=== PATIENT | female | born 1985 | race African-American/Black ===

== ENCOUNTER 2019-12-24 08:57 | Emergency (ER) | payer SELFPAY ==
[~2019-12-24] VITALS: Ht 162.6 cm; Wt 75.0 kg
[2019-12-24 09:02] VITALS: BP 137/92
== END 2019-12-24 10:19 | disposition left against medical advice (07) ==
LOC: ER 09:13
DX: Z53.21 Procedure and treatment not carried out due to patient leaving prior to being seen by health care provider (principal)

== ENCOUNTER 2021-03-06 06:13 | Emergency (ER) | payer MEDICAID ==
[~2021-03-06] VITALS: Ht 162.6 cm; Wt 82.0 kg
[2021-03-06] MEDS ORDERED: MORPHINE SULFATE 4 MG/ML CPJ (NOT FOR IM USE) IV STA (06:47)
[2021-03-06 07:15] LABS: BASOPHILS % 0.6 % (0.0-2.0); EOSINOPHILS % 1.9 % (0.0-5.0); HEMATOCRIT. 38.9 % (36.0-48.0); HEMOGLOBIN. 12.7 g/dL (12.0-16.0); LYMPHOCYTES % 23.3 % (20.0-50.0); MEAN CORPUSCULAR HEMOGLOBIN 27.1 pg (28.0-32.0); MEAN CORPUSCULAR VOLUME 82.6 fL (81.0-99.0); MEAN PLATELET VOLUME 8.6 fl (7.4-10.4); MONOCYTES % 6.5 % (2.0-8.0); NEUTROPHILS % 67.7 % (40.0-76.0); PLATELET 284 x1000/uL (130-400); RED BLOOD CELL COUNT 4.71 mill/uL (4.2-5.4)
[2021-03-06 07:21] LABS: CHLORIDE 106 mEq/L (98-107)
[2021-03-06 09:30] VITALS: BP 135/80
== END 2021-03-06 10:24 | disposition left against medical advice (07) ==
LOC: ER 06:13
DX: R07.89 Other chest pain (principal); J45.909 Unspecified asthma, uncomplicated; Z82.49 Family history of ischemic heart disease and other diseases of the circulatory system
CPT/HCPCS: 36415; 71045; 80053; 81025; 83880; 84484; 85025; 85379; 93005; 96374; 99285; J2270

== ENCOUNTER 2022-01-22 02:28 | Emergency (ER) | payer MEDICAID ==
[~2022-01-22] VITALS: Ht 162.6 cm; Wt 75.0 kg
[2022-01-22] MEDS ORDERED: IBUPROFEN 600MG TABLET PO ONE (03:15)
[2022-01-22 04:15] VITALS: BP 132/85
== END 2022-01-22 04:15 | disposition home or self-care (01) ==
LOC: ER 02:50
DX: M79.18 Myalgia, other site (principal); J45.909 Unspecified asthma, uncomplicated
CPT/HCPCS: 99282

== ENCOUNTER 2022-02-19 04:49 | Emergency (ER) | payer MEDICAID ==
[~2022-02-19] VITALS: Ht 162.6 cm; Wt 70.0 kg
[2022-02-19 05:43] LABS: BASOPHILS % 0.7 % (0.0-2.0); EOSINOPHILS % 3.8 % (0.0-5.0); HEMATOCRIT. 35.5 % (36.0-48.0); HEMOGLOBIN. 11.3 g/dL (12.0-16.0); LYMPHOCYTES % 40.5 % (20.0-50.0); MEAN CORPUSCULAR HEMOGLOBIN 26.1 pg (28.0-32.0); MEAN CORPUSCULAR VOLUME 82.2 fL (81.0-99.0); MEAN PLATELET VOLUME 7.6 fl (7.4-10.4); MONOCYTES % 8.6 % (2.0-8.0); NEUTROPHILS % 46.4 % (40.0-76.0); PLATELET 377 x1000/uL (130-400); RED BLOOD CELL COUNT 4.32 mill/uL (4.2-5.4); RED CELL DISTRIBUTION WIDTH 16.2 % (11.6-14.6)
[2022-02-19 05:51] LABS: CHLORIDE 105 mEq/L (98-107)
[2022-02-19 06:10] LABS: *BARBITURATES SCREEN URINE NEGATIVE (NEGATIVE); *BENZODIAZEPINES SCREEN URINE NEGATIVE (NEGATIVE); METHADONE URINE SCREEN NEGATIVE (NEGATIVE); OPIATES URINE SCREEN NEGATIVE (NEGATIVE)
[2022-02-19 06:20] LABS: *AMPHETAMINES SCREEN URINE PRESUMTIVE POSITIVE (NEGATIVE); *COCAINE SCREEN URINE PRESUMTIVE POSITIVE (NEGATIVE)
[2022-02-19 06:21] LABS: CANNABINOID URINE SCREEN PRESUMTIVE POSITIVE (NEGATIVE); PHENCYCLIDINE URINE SCREEN PRESUMTIVE POSITIVE (NEGATIVE)
[2022-02-19 07:25] VITALS: BP 138/85
== END 2022-02-19 07:25 | disposition home or self-care (01) ==
LOC: ER 04:49
DX: F15.10 Other stimulant abuse, uncomplicated (principal); F16.10 Hallucinogen abuse, uncomplicated; F12.10 Cannabis abuse, uncomplicated; F14.10 Cocaine abuse, uncomplicated; R55 Syncope and collapse; J45.909 Unspecified asthma, uncomplicated
CPT/HCPCS: 36415; 71045; 80053; 80305; 83880; 84484; 85025; 85379; 93005; 99285

== ENCOUNTER 2022-07-27 13:32 | Emergency (ER) | payer MEDICAID | END 2022-07-27 14:08 | disposition left against medical advice (07) | LOC: ER 13:32 | DX: Z53.21 Procedure and treatment not carried out due to patient leaving prior to being seen by health care provider (principal) ==

== ENCOUNTER 2022-07-29 00:14 | Emergency (ER) | payer MEDICAID ==
[~2022-07-29] VITALS: Ht 165.1 cm; Wt 77.0 kg
[2022-07-29 00:24] VITALS: BP 150/90
== END 2022-07-29 01:26 | disposition left against medical advice (07) ==
LOC: ER 00:14
DX: Z53.21 Procedure and treatment not carried out due to patient leaving prior to being seen by health care provider (principal)

== ENCOUNTER 2022-10-06 15:37 | Emergency (ER) | payer MEDICAID ==
[~2022-10-06] VITALS: Ht 167.6 cm; Wt 72.0 kg
[2022-10-06 15:51] VITALS: BP 111/77
== END 2022-10-06 19:05 | disposition left against medical advice (07) ==
LOC: ER 15:48
DX: Z53.21 Procedure and treatment not carried out due to patient leaving prior to being seen by health care provider (principal)
CPT/HCPCS: 99281

== ENCOUNTER 2022-11-21 20:42 | Emergency (ER) | payer MEDICAID ==
[~2022-11-21] VITALS: Ht 167.6 cm; Wt 61.0 kg
[2022-11-21 20:44] VITALS: BP 137/92
== END 2022-11-22 00:47 | disposition left against medical advice (07) ==
LOC: ER 20:42
DX: R68.89 Other general symptoms and signs (principal)
CPT/HCPCS: 81025; 99283

== ENCOUNTER 2022-11-24 18:48 | Emergency (ER) | payer MEDICAID ==
[~2022-11-24] VITALS: Ht 162.6 cm; Wt 72.6 kg
[2022-11-24 18:53] VITALS: BP 131/94
== END 2022-11-25 00:33 | disposition left against medical advice (07) ==
LOC: ER 18:48
DX: Z00.8 Encounter for other general examination (principal); Z53.21 Procedure and treatment not carried out due to patient leaving prior to being seen by health care provider
CPT/HCPCS: 99281

== ENCOUNTER 2022-12-30 21:41 | Emergency (ER) | payer MEDICAID ==
[~2022-12-30] VITALS: Ht 177.8 cm; Wt 80.0 kg
[2022-12-30 21:48] VITALS: BP 155/106; PULSE 106; RESP 14; TEMP 98.1; O2SAT 98
== END 2022-12-30 22:59 | disposition home or self-care (01) ==
LOC: ER 21:41
DX: R07.89 Other chest pain (principal)
CPT/HCPCS: 99283

== ENCOUNTER 2023-03-24 06:44 | Emergency (ER) | payer MEDICAID ==
[~2023-03-24] VITALS: Ht 167.6 cm; Wt 72.0 kg
[2023-03-24 07:32] VITALS: BP 141/107; PULSE 97; RESP 20; TEMP 98.1; O2SAT 100
== END 2023-03-24 09:39 | disposition left against medical advice (07) ==
LOC: ER 06:44
DX: Z53.21 Procedure and treatment not carried out due to patient leaving prior to being seen by health care provider (principal)
CPT/HCPCS: 99281

== ENCOUNTER 2023-04-17 22:56 | Emergency (ER) | payer MEDICAID ==
[~2023-04-17] VITALS: Ht 162.6 cm; Wt 73.6 kg
[2023-04-17 23:19] VITALS: BP 147/94; PULSE 112; RESP 18; TEMP 98.4; O2SAT 99
== END 2023-04-18 04:00 | disposition left against medical advice (07) ==
LOC: ER 23:38
DX: R10.30 Lower abdominal pain, unspecified (principal); Z53.21 Procedure and treatment not carried out due to patient leaving prior to being seen by health care provider
CPT/HCPCS: 99281

== ENCOUNTER 2023-06-05 00:24 | Emergency (ER) | payer MEDICAID ==
[~2023-06-05] VITALS: Ht 162.6 cm; Wt 77.0 kg
[2023-06-05 00:32] VITALS: TEMP 97.9; O2SAT 100
[2023-06-05 02:13] LABS: CLARITY URINE CLEAR (CLEAR); COLOR URINE YELLOW (YELLOW); GLUCOSE URINE NEGATIVE (NEGATIVE); KETONES URINE TRACE (NEGATIVE); LEUKOCYTE ESTERASE URINE NEGATIVE (NEGATIVE); NITRITE URINE NEGATIVE (NEGATIVE); OCCULT BLOOD URINE 2+ (NEGATIVE); PH URINE 6.5 (4.5-8.0); PROTEIN URINE 1+ (NEGATIVE); SPECIFIC GRAVITY URINE 1.031 (1.005-1.030)
[2023-06-05 02:30] LABS: BACTERIA URINE NONE SEEN; RBC URINE NONE SEEN /hpf (0-2); SQUAMOUS EPITHELIAL CELL URINE FEW /lpf (RARE/1+); WBC URINE 0-2 /hpf (0-2)
[2023-06-05 06:00] VITALS: BP 134/101; PULSE 103; RESP 16
[2023-06-05] MEDS ORDERED: HYDROCODONE/ACETAMINOPHEN 10/325MG TABLET PO ONE (06:00)
[2023-06-05] MEDS ORDERED: KETOROLAC 60MG/2ML VIAL IM ONE (06:00)
[2023-06-05] MEDS ORDERED: TOPUD MT (10:26)
== END 2023-06-05 11:14 | disposition home or self-care (01) ==
LOC: ER 00:24
DX: M54.50 Low back pain, unspecified (principal); W18.30XA Fall on same level, unspecified, initial encounter; Y93.89 Activity, other specified; Y92.89 Other specified places as the place of occurrence of the external cause; Y99.8 Other external cause status
CPT/HCPCS: 99284; 81003; 81025; 72020; 96372; J1885

== ENCOUNTER 2023-09-20 18:16 | Emergency (ER) | payer MEDICAID ==
[~2023-09-20] VITALS: Ht 165.1 cm; Wt 79.5 kg
[~2023-09-20 18:16] MED LIST: TOPUD MT
[2023-09-20 18:40] VITALS: O2SAT 100
[2023-09-20] MEDS ORDERED: RISP-28 PO (18:56)
[2023-09-20 19:15] LABS: BASOPHILS % 0.8 % (0.0-2.0); HEMOGLOBIN. 11.5 g/dL (12.0-16.0); LYMPHOCYTES % 35.2 % (20.0-50.0); MEAN CORPUSCULAR HEMOGLOBIN 26.5 pg (28.0-32.0); MEAN CORPUSCULAR HGB CONC 31.8 g/dL (31.0-37.0); MEAN CORPUSCULAR VOLUME 83.2 fL (81.0-99.0); MEAN PLATELET VOLUME 8.2 fl (7.4-10.4); MONOCYTES % 6.8 % (2.0-8.0); NEUTROPHILS % 55.2 % (40.0-76.0); PLATELET 370 x1000/uL (130-400); RED BLOOD CELL COUNT 4.33 mill/uL (4.2-5.4); RED CELL DISTRIBUTION WIDTH 16.7 % (11.6-14.6)
[2023-09-20 19:29] LABS: ALANINE AMINOTRANSFERASE 16 IU/L (10-49); ALBUMIN 4.5 g/dL (3.2-4.8); ASPARTATE AMINOTRANSFERASE 36 IU/L (<34); BILIRUBIN TOTAL 0.2 mg/dL (0.1-1.0); CALCIUM 8.5 mg/dL (8.7-10.4); CARBON DIOXIDE 27 mEq/L (21-32); CHLORIDE 105 mEq/L (98-107); CREATINE KINASE 370 IU/L (34-145); GLUCOSE 103 mg/dL (70-105); POTASSIUM 3.6 mEq/L (3.5-5.1); PROTEIN TOTAL 7.2 g/dL (6.0-8.3); SODIUM 139 mEq/L (136-145); TROPONIN I HIGH SENSITIVITY 9 ng/L (3.0-34); UREA NITROGEN BLOOD 11 mg/dL (9-23)
[2023-09-20 19:30] LABS: ETHANOL BLOOD < 10 mg/dL (<10)
[2023-09-20] MEDS: SODIUM CHLORIDE 0.9% 1,000 ML IV ONE (19:52)
[2023-09-20] MEDS: CLOPIDOGREL 75MG TABLET PO ONE (21:09)
[2023-09-20] MEDS: ASPIRIN 325MG TABLET PO ONE (21:09)
[2023-09-20] MEDS: IOHEXOL-350 100 ML BOTTLE ONE (23:14)
[2023-09-21 02:33] VITALS: BP 137/99; PULSE 87; RESP 15; TEMP 98.1
== END 2023-09-21 08:52 | disposition left against medical advice (07) ==
LOC: ER 18:30 → CANBEDREQ 09-21 08:52 → ER 09-21 08:52
DX: R53.1 Weakness (principal); F19.10 Other psychoactive substance abuse, uncomplicated; I63.9 Cerebral infarction, unspecified
CPT/HCPCS: 80053; 80320; 82550; 82962; 83690; 85025; 85610; 84484; 36415; 71045; 70496; 70498; 70450; 93005; 96360; 96361; 99291; 86850; 86900; 86901; Q9967; J7030; G0480

== ENCOUNTER 2024-01-05 01:52 | Emergency (ER) | payer MEDICAID, OTHER ==
[~2024-01-05] VITALS: Ht 162.6 cm; Wt 76.0 kg
[~2024-01-05 01:52] MED LIST changes: +RISP-28 PO; -TOPUD MT
[2024-01-05 02:20] VITALS: BP 139/113; PULSE 65; RESP 20; TEMP 98.5; O2SAT 99
[2024-01-05] MEDS ORDERED: IBUP-2029 MT (06:49)
[2024-01-05] MEDS ORDERED: LIDO700A30 TP (06:49)
== END 2024-01-05 07:08 | disposition home or self-care (01) ==
LOC: ER 01:52
DX: S20.212A Contusion of left front wall of thorax, initial encounter (principal); F12.10 Cannabis abuse, uncomplicated; V29.99XA Rider (driver) (passenger) of other motorcycle injured in unspecified traffic accident, initial encounter; Y93.89 Activity, other specified; Y92.89 Other specified places as the place of occurrence of the external cause; Y99.8 Other external cause status
CPT/HCPCS: 71101; 99283